=== PATIENT | female | born 1935 | race African-American/Black ===

== ENCOUNTER 2018-10-20 13:52 | Inpatient (IN) | payer OTHER ==
[~2018-10-20] VITALS: Ht 175.3 cm; Wt 118.5 kg
[2018-10-20] MEDS ORDERED: SODIUM CHLORIDE 0.9% 1,000 ML IV ONE (14:11)
[2018-10-20] MEDS ORDERED: ACETAMINOPHEN 325MG TABLET PO STA (14:11)
[2018-10-20] MEDS ORDERED: VANCOMYCIN 1 G PREMIX 200 ML IV ONE (14:15)
[2018-10-20] MEDS ORDERED: HYDROCORTISONE SOD SUCCINATE 100 MG/2 ML VIAL IV ONE (14:15)
[2018-10-20] MEDS ORDERED: PIPERACILLIN/TAZ 3.375G PREMIX 50 ML IV ONE (14:15)
[2018-10-20] MEDS ORDERED: LORAZEPAM 2MG/ML CPJ ONE (14:27)
[2018-10-20] MEDS ORDERED: LORAZEPAM 2MG/ML CPJ IV ONE (14:30)
[2018-10-20 14:49] LABS: HEMATOCRIT. 35.3 % (36.0-48.0); HEMOGLOBIN. 11.9 g/dL (12.0-16.0); MEAN CORPUSCULAR HEMOGLOBIN 34.4 pg (28.0-32.0); MEAN CORPUSCULAR VOLUME 101.8 fL (81.0-99.0); MEAN PLATELET VOLUME 7.6 fl (7.4-10.4); PLATELET 217 x1000/uL (130-400); RED BLOOD CELL COUNT 3.47 mill/uL (4.2-5.4); RED CELL DISTRIBUTION WIDTH 14.3 % (11.6-14.6)
[2018-10-20 14:53] LABS: PROTHROMBIN TIME 20.3 sec (9.1-11.1)
[2018-10-20 14:55] LABS: CHLORIDE 95 mEq/L (98-107)
[2018-10-20 14:59] LABS: ETHANOL BLOOD < 10 mg/dL
[2018-10-20] MEDS ORDERED: ACETAMINOPHEN 650MG SUPP PR ONE (15:00)
[2018-10-20 15:04] LABS: CREATINE KINASE 55 IU/L (26-192)
[2018-10-20 15:08] LABS: CREATINE KINASE MB FRACTION < 1.0 ng/mL (0.5-3.6)
[2018-10-20 15:19] LABS: BG BASE EXCESS 1.9 mmol/L (-2.0-2.0); BG CARBOXYHEMOGLOBIN 1.2 % (0.5-1.5); BG DEOXYHEMOGLOBIN 4.7 % (0.0-5.0); BG FRACTION INSPIRED OXYGEN 21; BG HCO3 ACT 25.5 mmol/L (22.0-26.0); BG METHEMOGLOBIN 0.3 % (0.0-1.5); BG OXYGEN SATURATION 95.2 % (92.0-98.5); BG OXYHEMOGLOBIN 93.8 % (94.0-97.0); BG PCO2 36.2 mmHg (35.0-45.0); BG PH 7.465 (7.350-7.450); BG PO2 74.6 mmHg (75.0-100.0); BG SAMPLE SITE RIGHT RADIAL; BG TOTAL HEMOGLOBIN 12.5 g/dL (12.0-18.0); BG VENT MODE ROOM AIR
[2018-10-20 16:02] LABS: PLATELET ESTIMATE NORMAL
[2018-10-20 17:53] LABS: CLARITY URINE CLOUDY (CLEAR); COLOR URINE YELLOW (YELLOW); KETONES URINE NEGATIVE (NEGATIVE); LEUKOCYTE ESTERASE URINE TRACE (NEGATIVE); NITRITE URINE NEGATIVE (NEGATIVE); OCCULT BLOOD URINE TRACE (NEGATIVE); PH URINE 7.5 (4.5-8.0); PROTEIN URINE TRACE (NEGATIVE); SPECIFIC GRAVITY URINE 1.013 (1.005-1.030)
[2018-10-20 18:09] LABS: *BARBITURATES SCREEN URINE NEGATIVE (NEGATIVE); *BENZODIAZEPINES SCREEN URINE NEGATIVE (NEGATIVE)
[2018-10-20 18:10] LABS: *AMPHETAMINES SCREEN URINE NEGATIVE (NEGATIVE); *COCAINE SCREEN URINE NEGATIVE (NEGATIVE); CANNABINOID URINE SCREEN NEGATIVE (NEGATIVE); METHADONE URINE SCREEN NEGATIVE (NEGATIVE); OPIATES URINE SCREEN NEGATIVE (NEGATIVE); PHENCYCLIDINE URINE SCREEN NEGATIVE (NEGATIVE)
[2018-10-20] MEDS ORDERED: CARBAMAZEPINE 100MG TABLET CHEW PO ONE (22:15)
[2018-10-21] VITALS (8 sets, daily range): BP systolic 133–160; BP diastolic 39–80
[2018-10-21] MEDS ORDERED: CARB200T6 PO (03:13)
[2018-10-21] MEDS ORDERED: WARF10TA21 PO (03:13)
[2018-10-21] MEDS ORDERED: LEVO88TA7 PO (03:13)
[2018-10-21] MEDS ORDERED: LISI40TA4 MT (03:13)
[2018-10-21] MEDS ORDERED: CLON0.2T PO (03:13)
[2018-10-21] MEDS ORDERED: CARB300C6 PO ×2 (03:13)
[2018-10-21] MEDS ORDERED: FURO-152 PO (03:13)
[2018-10-21] MEDS ORDERED: WARF2TAB57 PO (03:13)
[2018-10-21] MEDS ORDERED: FELO10TA MT (03:13)
[2018-10-21] MEDS ORDERED: ACETAMINOPHEN 650MG/20.3ML UDC PO PRN (04:30)
[2018-10-21] MEDS: CLONIDINE 0.1MG TABLET PO PRN ×3 (04:41→23:38)
[2018-10-21 09:57] LABS: HEMATOCRIT. 31.4 % (36.0-48.0); HEMOGLOBIN. 10.8 g/dL (12.0-16.0); MEAN CORPUSCULAR HEMOGLOBIN 34.8 pg (28.0-32.0); MEAN PLATELET VOLUME 7.4 fl (7.4-10.4); PLATELET 183 x1000/uL (130-400); RED BLOOD CELL COUNT 3.11 mill/uL (4.2-5.4); RED CELL DISTRIBUTION WIDTH 14.6 % (11.6-14.6)
[2018-10-21 10:12] LABS: CHLORIDE 98 mEq/L (98-107)
[2018-10-21] MEDS: LISINOPRIL 40MG TABLET PO SCH (11:04)
[2018-10-21] MEDS ORDERED: VANCOMYCIN 1 G PREMIX 200 ML IV SCH (13:30)
[2018-10-21] MEDS ORDERED: CARBAMAZEPINE PO SCH ×2 (14:00→20:00)
[2018-10-21] MEDS: PIPERACILLIN/TAZ 3.375G PREMIX 50 ML IV SCH ×2 (14:24→19:06)
[2018-10-21] MEDS ORDERED: DAPTOMYCIN 500 MG in SODIUM CHLORIDE 0.9% 50 ML IV SCH (15:00)
[2018-10-21] MEDS: CARBAMAZEPINE 200MG TABLET PO SCH ×2 (16:34→22:10)
[2018-10-21 17:17] LABS: PROTHROMBIN TIME 19.9 sec (9.1-11.1)
[2018-10-21] MEDS ORDERED: WARFARIN SODIUM 10MG TABLET PO SCH (19:00)
[2018-10-21] MEDS: LEVOTHYROXINE SODIUM 88MCG TABLET PO SCH (19:07)
[2018-10-22] VITALS (10 sets, daily range): BP systolic 145–180; BP diastolic 65–90
[2018-10-22] MEDS: PIPERACILLIN/TAZ 3.375G PREMIX 50 ML IV SCH ×4 (01:24→17:29)
[2018-10-22] MEDS: LEVOTHYROXINE SODIUM 88MCG TABLET PO SCH (06:15)
[2018-10-22 06:46] LABS: INR 1.7; PROTHROMBIN TIME 16.9 sec (9.1-11.1)
[2018-10-22] MEDS ORDERED: POTASSIUM CHLORIDE 20MEQ TABLET SR PO PRN (07:30)
[2018-10-22 07:40] LABS: PLATELET ESTIMATE NORMAL
[2018-10-22] MEDS ORDERED: CARBAMAZEPINE 200MG TABLET PO SCH (08:00)
[2018-10-22 08:58] LABS: HEMATOCRIT. 31.7 % (36.0-48.0); HEMOGLOBIN. 10.6 g/dL (12.0-16.0); MEAN CORPUSCULAR HEMOGLOBIN 34.4 pg (28.0-32.0); MEAN CORPUSCULAR VOLUME 102.7 fL (81.0-99.0); MEAN PLATELET VOLUME 8.4 fl (7.4-10.4); PLATELET 126 x1000/uL (130-400); RED BLOOD CELL COUNT 3.09 mill/uL (4.2-5.4); RED CELL DISTRIBUTION WIDTH 14.8 % (11.6-14.6)
[2018-10-22] MEDS: CARBAMAZEPINE 200MG TABLET PO SCH ×3 (09:06→20:56)
[2018-10-22] MEDS: LISINOPRIL 40MG TABLET PO SCH (09:07)
[2018-10-22 09:28] LABS: CHLORIDE 102 mEq/L (98-107)
[2018-10-22 14:14] LABS: PLATELET ESTIMATE SLIGHTLY DECREASED
[2018-10-22] MEDS: CLONIDINE 0.1MG TABLET PO PRN (17:32)
[2018-10-22] MEDS ORDERED: WARFARIN SODIUM 10MG TABLET PO SCH (18:00)
[2018-10-23] VITALS: BP 140/56
[2018-10-23 00:04] VITALS: BP 140/56
[2018-10-26] MEDS ORDERED: WARFARIN SODIUM 2MG TABLET PO SCH (09:00)
== END 2018-10-23 00:38 | disposition short-term general hospital (02) | DRG 871 ==
LOC: ER 14:03 → 3WST 15:33 → CANBEDREQ 20:40 → ENRESERV 22:28
PROVIDERS: ADMIT Family Medicine; ATTEND Family Medicine
DX: A40.9 Streptococcal sepsis, unspecified (principal); G93.41 Metabolic encephalopathy; N39.0 Urinary tract infection, site not specified; I10 Essential (primary) hypertension; M79.2 Neuralgia and neuritis, unspecified; J44.9 Chronic obstructive pulmonary disease, unspecified; B96.20 Unspecified Escherichia coli [E. coli] as the cause of diseases classified elsewhere; R79.1 Abnormal coagulation profile; T45.515A Adverse effect of anticoagulants, initial encounter; Z79.01 Long term (current) use of anticoagulants; Z86.718 Personal history of other venous thrombosis and embolism; Z90.710 Acquired absence of both cervix and uterus
CPT/HCPCS: 36415; 36600; 71045; 80156; 80305; 80320; 82375; 82533; 82550; 82553; 82805; 82962; 83605; 83880; 84145; 84443; 84484; 87077; 87186; 87804; 93005; 93306; 93970; 96365; 96366; 96368; 96375; 99285; A6261; J0878; J1720; J2060; J2543; J3370; J7030; J7050; A4315; G0480

== ENCOUNTER 2021-08-28 14:02 | Inpatient (IN) | payer OTHER ==
[~2021-08-28] VITALS: Ht 175.3 cm; Wt 91.2 kg
[~2021-08-28 14:02] MED LIST: CARB200T6 PO; CARB300C9 PO; CLON0.2T PO; FELO10TA45 MT; FURO-152 PO; LEVO88TA7 PO; LISI40TA13 MT; WARF10TA21 PO; WARF2TAB57 PO
[2021-08-28] MEDS ORDERED: LABETALOL 5MG/ML SYR 20 MG/4 ML SYRINGE IV ONE (14:45)
[2021-08-28 15:23] LABS: HEMOGLOBIN. 11.3 g/dL (12.0-16.0); MEAN CORPUSCULAR HEMOGLOBIN 33.7 pg (28.0-32.0); MEAN CORPUSCULAR VOLUME 99.1 fL (81.0-99.0); MEAN PLATELET VOLUME 6.8 fl (7.4-10.4); PLATELET 197 x1000/uL (130-400); RED BLOOD CELL COUNT 3.33 mill/uL (4.2-5.4); RED CELL DISTRIBUTION WIDTH 14.3 % (11.6-14.6)
[2021-08-28 15:31] LABS: PROTHROMBIN TIME 29.1 sec (9.6-11.0)
[2021-08-28 15:32] LABS: CHLORIDE 97 mEq/L (98-107)
[2021-08-28 15:36] LABS: ETHANOL BLOOD < 10 mg/dL
[2021-08-28 15:39] LABS: CARBAMAZEPINE 11.4 ug/mL (4-12)
[2021-08-28 15:42] LABS: CREATINE KINASE 38 IU/L (26-192); LDL CHOLESTEROL 63 mg/dL (5-100)
[2021-08-28] MEDS ORDERED: ACETAMINOPHEN 325MG TABLET PO STA (15:44)
[2021-08-28] MEDS ORDERED: SODIUM CHLORIDE 0.9% 1000ML BAG (SEPSIS BOLUS) IV ONE (15:45)
[2021-08-28] MEDS ORDERED: CEFTRIAXONE 1 G PREMIX 50 ML IV ONE (15:45)
[2021-08-28] MEDS ORDERED: KCL 10MEQ/50ML PREMIX 50 ML IV ONE (15:45)
[2021-08-28 16:48] LABS: CLARITY URINE CLEAR (CLEAR); COLOR URINE YELLOW (YELLOW); KETONES URINE NEGATIVE (NEGATIVE); LEUKOCYTE ESTERASE URINE TRACE (NEGATIVE); NITRITE URINE NEGATIVE (NEGATIVE); OCCULT BLOOD URINE NEGATIVE (NEGATIVE); PROTEIN URINE 1+ (NEGATIVE); UROBILINOGEN URINE 0.2 E.U./dL (0.2-1.0)
[2021-08-28 17:06] LABS: PLATELET ESTIMATE NORMAL
[2021-08-28 17:10] LABS: *AMPHETAMINES SCREEN URINE NEGATIVE (NEGATIVE)
[2021-08-28 17:11] LABS: *BARBITURATES SCREEN URINE NEGATIVE (NEGATIVE); *BENZODIAZEPINES SCREEN URINE NEGATIVE (NEGATIVE); *COCAINE SCREEN URINE NEGATIVE (NEGATIVE); METHADONE URINE SCREEN NEGATIVE (NEGATIVE); OPIATES URINE SCREEN NEGATIVE (NEGATIVE); PHENCYCLIDINE URINE SCREEN NEGATIVE (NEGATIVE)
[2021-08-28 17:12] LABS: CANNABINOID URINE SCREEN NEGATIVE (NEGATIVE)
[2021-08-28] MEDS ORDERED: LORAZEPAM 0.5MG TABLET PO PRN (17:45)
[2021-08-28] MEDS ORDERED: LEVETIRACETAM 500MG PREMIX 100 ML IV NR (17:45)
[2021-08-28] MEDS ORDERED: DOCUSATE SODIUM 100MG CAPSULE PO PRN (17:45)
[2021-08-28] MEDS ORDERED: ONDANSETRON HCL 4MG/2ML INJ IV PRN (17:45)
[2021-08-28] MEDS ORDERED: ACETAMINOPHEN 325MG TABLET PO PRN (17:45)
[2021-08-28] MEDS ORDERED: HYDRALAZINE 20MG/ML VIAL IV PRN (18:00)
[2021-08-28] MEDS: CARBAMAZEPINE 200MG TABLET PO SCH (18:00)
[2021-08-28] MEDS: PIPERACILLIN/TAZ 3.375G PREMIX 50 ML IV SCH (18:50)
[2021-08-28] MEDS ORDERED: LACTATED RINGERS 1,000 ML IV SCH (21:30)
[2021-08-28] MEDS: ATORVASTATIN CALCIUM 40MG TABLET PO SCH (23:17)
[2021-08-29] MEDS: PIPERACILLIN/TAZ 3.375G PREMIX 50 ML IV SCH ×2 (02:27→09:51)
[2021-08-29 04:12] LABS: HEMATOCRIT. 35.2 % (36.0-48.0); HEMOGLOBIN. 11.7 g/dL (12.0-16.0); MEAN CORPUSCULAR HEMOGLOBIN 33.1 pg (28.0-32.0); MEAN CORPUSCULAR VOLUME 99.4 fL (81.0-99.0); MEAN PLATELET VOLUME 7.3 fl (7.4-10.4); PLATELET 191 x1000/uL (130-400); RED BLOOD CELL COUNT 3.54 mill/uL (4.2-5.4); RED CELL DISTRIBUTION WIDTH 14.1 % (11.6-14.6)
[2021-08-29 04:31] LABS: CHLORIDE 97 mEq/L (98-107)
[2021-08-29] MEDS ORDERED: LEVETIRACETAM 500MG PREMIX 100 ML IV SCH (09:00)
[2021-08-29] MEDS: ASPIRIN 81MG EC TABLET PO SCH (09:36)
[2021-08-29] MEDS: AMLODIPINE 2.5MG TABLET PO SCH ×2 (09:48→21:10)
[2021-08-29] MEDS: CARBAMAZEPINE 200MG TABLET PO SCH (09:49)
[2021-08-29] MEDS: CLONIDINE 0.1MG TABLET PO SCH ×3 (10:24→21:09)
[2021-08-29 11:04] LABS: PLATELET ESTIMATE NORMAL
[2021-08-29 13:30] VITALS: BP 145/66
[2021-08-29 16:00] VITALS: BP 169/67
[2021-08-29] MEDS: PIPERACILLIN/TAZOBACTAM 3.375G in DEXT 5% WATER 50ML IV SCH ×2 (16:16→21:08)
[2021-08-29 20:00] VITALS: BP 139/69
[2021-08-29] MEDS: ATORVASTATIN CALCIUM 40MG TABLET PO SCH (21:10)
[2021-08-30] VITALS: BP 142/68
[2021-08-30 01:27] LABS: INR 3.3; PROTHROMBIN TIME 32.4 sec (9.6-11.0)
[2021-08-30 04:00] VITALS: BP 164/73
[2021-08-30] MEDS: CLONIDINE 0.1MG TABLET PO SCH ×3 (05:37→21:26)
[2021-08-30] MEDS: PIPERACILLIN/TAZOBACTAM 3.375G in DEXT 5% WATER 50ML IV SCH ×3 (05:37→21:35)
[2021-08-30 07:36] LABS: HEMATOCRIT. 31.7 % (36.0-48.0); HEMOGLOBIN. 10.7 g/dL (12.0-16.0); MEAN CORPUSCULAR HEMOGLOBIN 33.7 pg (28.0-32.0); MEAN CORPUSCULAR VOLUME 99.8 fL (81.0-99.0); PLATELET 166 x1000/uL (130-400); RED BLOOD CELL COUNT 3.18 mill/uL (4.2-5.4); RED CELL DISTRIBUTION WIDTH 14.3 % (11.6-14.6)
[2021-08-30 07:48] LABS: CHLORIDE 100 mEq/L (98-107)
[2021-08-30 08:00] VITALS: BP 171/86
[2021-08-30] MEDS: ASPIRIN 81MG EC TABLET PO SCH ×2 (09:00→09:48)
[2021-08-30] MEDS: LISINOPRIL 20MG TABLET PO SCH (09:48)
[2021-08-30] MEDS: AMLODIPINE 2.5MG TABLET PO SCH ×2 (09:48→21:27)
[2021-08-30] MEDS: CARBAMAZEPINE 200MG TABLET PO SCH ×3 (09:49→17:08)
[2021-08-30 12:00] VITALS: BP 140/85
[2021-08-30 16:00] VITALS: BP 151/78
[2021-08-30 18:27] LABS: PLATELET ESTIMATE NORMAL
[2021-08-30 20:00] VITALS: BP 142/79
[2021-08-30] MEDS: ATORVASTATIN CALCIUM 40MG TABLET PO SCH (21:26)
[2021-08-31] VITALS (8 sets, daily range): BP systolic 109–195; BP diastolic 55–91
[2021-08-31] MEDS: PIPERACILLIN/TAZOBACTAM 3.375G in DEXT 5% WATER 50ML IV SCH (05:21)
[2021-08-31] MEDS: CLONIDINE 0.1MG TABLET PO SCH ×2 (05:34→15:32)
[2021-08-31 06:56] LABS: INR 1.5; PROTHROMBIN TIME 15.5 sec (9.6-11.0)
[2021-08-31 07:12] LABS: BASOPHILS % 0.7 % (0.0-2.0); HEMATOCRIT. 31.8 % (36.0-48.0); HEMOGLOBIN. 10.9 g/dL (12.0-16.0); LYMPHOCYTES % 12.9 % (20.0-50.0); MEAN CORPUSCULAR HEMOGLOBIN 34.1 pg (28.0-32.0); MEAN CORPUSCULAR VOLUME 99.4 fL (81.0-99.0); MONOCYTES % 7.3 % (2.0-8.0); NEUTROPHILS % 79.1 % (40.0-76.0); RED CELL DISTRIBUTION WIDTH 14.1 % (11.6-14.6)
[2021-08-31 07:36] LABS: CHLORIDE 97 mEq/L (98-107)
[2021-08-31] MEDS: AMLODIPINE 2.5MG TABLET PO SCH ×2 (10:25→20:59)
[2021-08-31] MEDS: CARBAMAZEPINE 200MG TABLET PO SCH ×3 (10:25→17:47)
[2021-08-31] MEDS: LISINOPRIL 20MG TABLET PO SCH (10:26)
[2021-08-31] MEDS: ASPIRIN 81MG EC TABLET PO SCH (10:26)
[2021-08-31 13:36] LABS: MEAN PLATELET VOLUME 8.6 fl (7.4-10.4); PLATELET 170 x1000/uL (130-400)
[2021-08-31] MEDS: CEPHALEXIN 250MG CAPSULE PO SCH ×3 (15:31→21:00)
[2021-08-31] MEDS ORDERED: WARFARIN SODIUM 5MG TABLET PO SCH (18:00)
[2021-08-31] MEDS ORDERED: CEPH500T MT ×2 (20:47→20:49)
[2021-08-31] MEDS: ATORVASTATIN CALCIUM 40MG TABLET PO SCH (20:59)
== END 2021-08-31 21:15 | disposition home or self-care (01) | DRG 871 ==
LOC: ER 14:06 → MICUSO 16:31 → EDBEDREQ 16:35 → EDBEDREQSVC 16:35 → EDBEDREQTM 16:35 → EDBEDREQSVC 18:22 → 5WST 08-29 13:10
PROVIDERS: ADMIT Family Medicine Adult Medicine; ATTEND Family Medicine Adult Medicine
DX: A41.9 Sepsis, unspecified organism (principal); I21.A1 Myocardial infarction type 2; E46 Unspecified protein-calorie malnutrition; E87.1 Hypo-osmolality and hyponatremia; I16.1 Hypertensive emergency; I67.4 Hypertensive encephalopathy; N39.0 Urinary tract infection, site not specified; E78.5 Hyperlipidemia, unspecified; E88.09 Other disorders of plasma-protein metabolism, not elsewhere classified; G50.0 Trigeminal neuralgia; G83.84 Todd's paralysis (postepileptic); I10 Essential (primary) hypertension; Z20.822 Contact with and (suspected) exposure to COVID-19; I27.20 Pulmonary hypertension, unspecified; R56.9 Unspecified convulsions; Z74.01 Bed confinement status; Z86.718 Personal history of other venous thrombosis and embolism; Z79.899 Other long term (current) drug therapy; Z79.01 Long term (current) use of anticoagulants; Z68.29 Body mass index [BMI] 29.0-29.9, adult
CPT/HCPCS: 36415; 70496; 70498; 70551; 71045; 80048; 80053; 80061; 80076; 80156; 80305; 80320; 81003; 82542; 82550; 82962; 83605; 83721; 83735; 83880; 84145; 84443; 84484; 85025; 87077; 87186; 87426; 92610; 93005; 93306; 95816; 97162; 97165; 99291; C1893; J0360; J0696; J1953; J2543; J3480; J3490; J7030; J7060; A4315; G0480